=== PATIENT | female | born 1930 | race Caucasian/White ===

== ENCOUNTER → 2016-12-15 | Outpatient (CLI) | payer OTHER ==
[~2016-12-15] MED LIST: ASPIRIN81 M1 PO; B/P MEDS; CALTRATE 600+D PO; CENTRUM SILVER1 EAC1 PO; COQ-1010 MG PO; FISH OIL 1,0001 CAP PO; GARLIC OIL1000 MG PO; LEVOTHYROXINE50 MCG PO; MIRALAX17 GM DOB; NORVASC10 MG PO; OMEPRAZOLE40 MG PO; PRAVASTATIN SOD40 MG; PRESERVISION SO1 CAP PO; THYROID MED; VIT D PO; [UNRECOGNIZED DRUG - REMARK]
--- NOTE | ~2016-12-15 | MR17 ---
[facility] A Service of [facility] & [facility] RADIOLOGY TEXT RESULTS PATIENT: SHIKHA BECKHAM LOCATION: [facility] : [birth year] UNIT #: [id number] AGE: [address]: CARLOS JARRETT DO SEX: F ORDER DR: [id number] [facility] [address] [place], [place] [address] [id number] O MR#: [id number] Acc #: [id number] NAME: SHIKHA BECKHAM. : 1930 SEX: F STUDY DATE/TIME: 12/15/2016 7:13 UNIT: [facility] ROOM: STUDY DESCRIPTION: MR Brain WWo Contrast Attending Physician: Carlos Jarrett D.O. Referring Physician: Carlos Jarrett D.O. Ordering Physician: Carlos Jarrett D.O. Primary Care Physician: Carlos Jarrett D.O. MRI CENTER REPORT This report is preliminary unless electronic signature is present. EXAM Brain MRI with and without contrast HISTORY Memory loss, abnormal movements, symptoms for a month and worsening, upper extremities are shaking and jerking, history of multiple falls in the past. Last fall about 2 weeks ago. COMMENT MRI of the brain was performed prior to and following intravenous administration 10 mL MultiHance on a 1.5T system. Head CT comparison is from 12/04/2009. There is no evidence for a recent ischemic insult on the diffusion series. There is no Chiari-I malformation. Chronic malacia right occipital lobe with some probable old blood product deposition. Review of a CT scan from 12/04/2009 does not show significant calcification. There are too numerous to count punctate foci of susceptibility throughout the supratentorial and infratentorial brain with predominant cortical distribution and this is concerning most for amyloid angiopathy. The larger areas of susceptibility are seen associated with the malacic change in the right occipital lobe. There are 2 areas essentially up to about 1.3 and 1.1 cm in dimension. I suspect the old insult was hemorrhagic, either due to hemorrhagic transformation of a thromboembolic insult or due to hemorrhage into amyloid angiopathy with subsequent malacia. Please correlate further clinically. There is no extraaxial fluid collection. There is also fairly extensive white matter signal abnormality which is nonspecific but probably due to small vessel disease. There is mild mucosal thickening in left maxillary sinus. The mastoid air cells are clear. The patient has had cataract surgery. There is no sinus air-fluid level. The major intracranial flow voids are maintained. Chronic lacunes and/or prominent perivascular spaces in the bilateral basal ganglia and chronic lacunar insults left cerebellar hemisphere. No intracranial mass STS. [facility] A Service of [facility] RADIOLOGY TEXT RESULTS PATIENT: SHIKHA BECKHAM LOCATION: [facility] : [birth year] UNIT #: [id number] AGE: [address]: CARLOS JARRETT DO SEX: F ORDER DR: roxann. Following contrast administration, there is no pathologic intracranial enhancement. There is no intracranial mass lesion suspected. IMPRESSION 1. No evidence for a recent ischemic insult on the diffusion series. 2. 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 See discussion above. 3. Chronic malacic change is noted involving the right occipital lobe with areas of blood product deposition (old). This could be due to an old thromboembolic insult with hemorrhagic transformation or could be due to previous hemorrhage due to amyloid angiopathy with subsequent gliosis of the surrounding injured brain parenchyma. Please correlate further clinically. 4. Mild generalized atrophy and fairly extensive probable sequelae of small vessel disease. Dictated by... Dominique Posadas M.D. THIS IS AN ELECTRONICALLY VERIFIED REPORT Dominique Posadas M.D. at 12/15/2016 3:12 PM WAYNE/mely TD: 12/15/2016 13:46 JOB #: [id number] MRI CENTER REPORT COPY
[2016-12-15 12:29] LABS: POC - CREATININE 0.76 mg/dL (0.44-1.03); POC - GFR >60.0 mL/min (>60)
== END | disposition home or self-care (01) ==
LOC: CMRI 06:12
PROVIDERS: Family Medicine
DX: R41.3 Other amnesia (principal); R25.9 Unspecified abnormal involuntary movements; G31.9 Degenerative disease of nervous system, unspecified
CPT/HCPCS: 70553; 82565; A9577